=== PATIENT | female | born 2000 | race Caucasian/White ===

== ENCOUNTER 2022-07-08 22:16 | Emergency (ER) | payer MEDICAID, MEDICARE ==
[~2022-07-08] VITALS: Ht 154.9 cm; Wt 86.0 kg
[2022-07-08 22:40] VITALS: BP 156/93
[2022-07-09] MEDS ORDERED: IBUP-2029 MT (02:20)
== END 2022-07-09 02:00 | disposition home or self-care (01) ==
LOC: ER 22:16
DX: R51.9 Headache, unspecified (principal); I10 Essential (primary) hypertension
CPT/HCPCS: 81025; 99282